=== PATIENT | female | born 2000 | race Caucasian/White ===

== ENCOUNTER 2021-04-22 16:35 | Emergency (ER) | payer OTHER ==
[2021-04-22 16:47] VITALS: RESP 18
--- NOTE | 2021-04-22 17:03 | ED ---
Head Injury HPI - General Chief complaint: Head Injury Stated complaint: Hit head on bottom of pool Time Seen by Provider: 04/22/21 16:56 Source: patient Mode of arrival: wheelchair Limitations: no limitations - History of Present Illness Initial comments: 20-year-old female presents to emergency Department with a chief complaint of a head injury. Patient reports she attempted to do a back flip into a pool that was approximately 5.5 feet deep. States she landed directly on the parietal aspect of her head. States she felt dizzy afterward but there was no loss of consciousness. Denies any blood thinners. She reports pain at the site of injury with some neck pain as well as states she has full range of motion. Reports some tingling to bilateral upper extremities but not the lower extremities. No weakness in either lower or upper extremities. Denies any visual changes one-sided weakness or paresthesias. Denies any nausea or vomiting. This occurred 25 minutes prior to arrival. Upon evaluation, c-collar was immediately applied. - Related Data Allergies/Adverse reactions: Allergies Allergy/AdvReac Type Severity Reaction Status Date / Time Penicillins Allergy Unknown Verified 04/22/21 16:47 Review of Systems ROS Statement: Those systems with pertinent positive or pertinent negative responses have been documented in the HPI. ROS Other: All systems not noted in ROS Statement are negative. Past Medical History Additional Past Medical History / Comment(s): celiac and crohns disease History of Any Multi-Drug Resistant Organisms: None Reported Past Surgical History: No Surgical Hx Reported Past Psychological History: No Psychological Hx Reported Smoking Status: Never smoker Past Alcohol Use History: Occasional Past Drug Use History: None Reported General Exam Limitations: no limitations General appearance: alert, in no apparent distress Head exam: Present: atraumatic, normocephalic, normal inspection. Absent: other (Negative Romo sign, raccoon eyes, hemotympanum.) Eye exam: Present: normal appearance, PERRL, EOMI Pupils: Present: normal accommodation ENT exam: Present: normal exam, normal oropharynx, mucous membranes moist, TM's normal bilaterally, normal external ear exam Neck exam: Present: normal inspection, tenderness (Midcervical tenderness.), full ROM (Full range of motion of cervical spine). Absent: lymphadenopathy Respiratory exam: Present: normal lung sounds bilaterally. Absent: respiratory distress, rales, rhonchi, stridor Cardiovascular Exam: Present: regular rate, normal rhythm, normal heart sounds. Absent: systolic murmur GI/Abdominal exam: Present: soft. Absent: distended, tenderness, guarding, rebound Extremities exam: Present: normal inspection, full ROM, normal capillary refill, other (Sensation intact in bilateral upper extremities.). Absent: tenderness, pedal edema, joint swelling, calf tenderness Back exam: Present: normal inspection, full ROM. Absent: tenderness, CVA tenderness (R), CVA tenderness (L), muscle spasm, paraspinal tenderness, vertebral tenderness Neurological exam: Present: alert, oriented X3, CN II-XII intact, normal gait Psychiatric exam: Present: normal affect, normal mood Skin exam: Present: warm, dry, intact, normal color Course Vital Signs 04/22/21 04/22/21 16:44 18:03 Temperature 98.1 F 97.5 F L Pulse Rate 90 91 Respiratory 18 18 Rate Blood Pressure 124/78 122/81 O2 Sat by Pulse 95 97 Oximetry Medical Decision Making - Medical Decision Making 20-year-old female presents to emergency Department with a chief complaint of a head injury. On physical examination, tenderness at the parietal region of the head. Mid cervical tenderness but full range of motion the neck. She has full sensation in bilateral upper extremities, however she continues to complain of a tingling sensation mostly localized to her hands and fingers. States it has slightly improved while she was in the emergency department. Patient was given Tylenol for pain. C-collar was immediately applied on arrival. CT of the brain and C-spine shows no acute processes. Considering the patient continues to feel symptomatic, I did recommend transfer. I spoke with the patient's mother who is the emergency contact she requested [facility] as the choice for transfer. Patient agreed to transfer via ambulance. I spoke to out of [facility] who will accept the transfer. Case discussed with attending, Disposition Clinical Impression: Closed head injury, Concussion Disposition: OTHER INSTITUTION NOT DEFINED Condition: Stable Instructions (If sedation given, give patient instructions): Concussion (ED) Additional Instructions: Transfer via ambulance Is patient prescribed a controlled substance at d/c from ED?: No Referrals: Nonstaff,Physician [Primary Care Provider] - 1-2 days Time of Disposition: 18:42 - Out of Hospital Transfer - Req. Specs Out of Hospital Transfer - Requested Specifics: Other Emergency Center ([facility]
--- NOTE | 2021-04-22 17:36 | CT ---
EXAMINATION TYPE: CT brain caleb wo con DATE OF EXAM: 04/22/2021 COMPARISON: None HISTORY: Head injury with neck pain. CT DLP: 1377.8 mGycm Automated exposure control for dose reduction was used. Ventricles and sulci appear normal. There is no mass effect nor midline shift. There is no sign of in tracranial hemorrhage. Calvarium is intact. Skull base is intact. There is normal aeration of the mas toid sinuses. There is no evidence of cerebral edema. Cervical vertebra have normal alignment. Disc spaces are normal. Posterior elements are intact. Facet joints are intact. Soft tissues appear normal. IMPRESSION: Negative CT scan of the cervical spine. Negative CT scan of the brain.
[2021-04-22 18:04] VITALS: TEMP 97.5
[2021-04-22] MEDS ORDERED: ACETAMINOPHEN TAB 500 MG TAB PO STA (18:24)
[2021-04-22 19:14] VITALS: BP 116/83; PULSE 83
== END 2021-04-22 19:08 | disposition other institution (70) ==
LOC: EC 16:35
DX: S06.0X0A Concussion without loss of consciousness, initial encounter (principal); Z88.0 Allergy status to penicillin; W16.512A Jumping or diving into swimming pool striking water surface causing other injury, initial encounter
CPT/HCPCS: 70450; 72125; 99285